=== PATIENT | female | born 1990 | race Caucasian/White ===

== ENCOUNTER 2016-11-11 23:42 | Observation (INO) | payer MEDICAID, OTHER ==
[2016-11-12] MEDS ORDERED: ACETAMINOPHEN 325 MG TAB PO ONE (00:30)
[2016-11-12 02:19] LABS: % IMMATURE GRANULYOCYTES 0.6 % (0.0-1.1); ABSOLUTE IMMATURE GRANULOCYTES 0.06 10^3/uL (0.00-0.10); ADD DIFF? NO; ADD MORPH? NO; ADD SCAN? NO; ATYPICAL LYMPHOCYTE FLAG 0 (0-99); FRAGMENT RBC FLAG 0 (0-99); HEMATOCRIT 31.6 % (38.0-47.0); HEMOGLOBIN 10.9 g/dL (12.6-16.3); LEFT SHIFT FLG 0 (0-99); LIPEMIA HEMOLYSIS FLAG 90 (0-99); MEAN CELL HEMOGLOBIN 31.6 pg (27.9-34.1); MEAN CELL HEMOGLOBIN CONCENTR. 34.5 g/dL (32.4-36.7); MEAN CELL VOLUME 91.6 fL (81.5-99.8); MEAN PLATELET VOLUME 9.6 fL (8.7-11.7); PLATELET CLUMPS FLAG 10 (0-99); PLATELET COUNT 302 10^3/uL (150-400); RED BLOOD CELL COUNT 3.45 10^6/uL (4.18-5.33); RED CELL DISTRIBUTION WIDTH 12.4 % (11.5-15.2)
[2016-11-12 02:33] LABS: ALANINE AMINOTRANSFERASE 48 IU/L (9-52); ALBUMIN 2.5 g/dL (3.5-5.0); ALKALINE PHOSPHATASE 114 IU/L (38-126); ANION GAP 5 mEq/L (8-16); ASPARTATE AMINOTRANSFERASE 84 IU/L (14-46); BILIRUBIN,TOTAL 0.4 mg/dL (0.1-1.4); CALCIUM 7.9 mg/dL (8.5-10.4); CARBON DIOXIDE 25 mEq/l (22-31); CHLORIDE 106 mEq/L (97-110); CREATININE 0.4 mg/dL (0.6-1.0); GLOMERULAR FILTRATION RATE > 60; GLUCOSE 109 mg/dL (70-100); POTASSIUM 3.9 mEq/L (3.5-5.2); SODIUM 136 mEq/L (134-144); TOTAL PROTEIN 5.2 g/dL (6.3-8.2)
[2016-11-12 03:22] LABS: HEPATITIS B SURFACE ANTIBODY NEGATIVE (NEGATIVE)
[2016-11-12 03:44] LABS: COLOR YELLOW; LEUKOCYTE ESTERASE,URINE 2+ (NEGATIVE); NITRITE,URINE POSITIVE (NEGATIVE)
[2016-11-12 03:45] LABS: BACTERIA 4+ /hpf (NONE SEEN); WBC,URINE 50-182 /hpf (0-3)
[2016-11-12 04:00] LABS: PHENCYCLIDINE URINE BCH < 6 ng/ml (NEGATIVE); PHENCYCLIDINE URINE BCH NEGATIVE (NEGATIVE); TETRAHYDROCANNABINOL URINE < 5 ng/mL (NEGATIVE); TETRAHYDROCANNABINOL URINE NEGATIVE (NEGATIVE)
[2016-11-12] MEDS ORDERED: NITROFURANTOIN MACROBID 100 MG CAP PO ONE (04:30)
--- NOTE | 2016-11-12 11:17 | US ---
Obstetrical Sonogram Clinical Indications: Pelvic pain of a 26-year-old female; unknown dates. There has been no care. Findings: A single living vertex fetus with a regular heart rate of 147 beats per minute. The amniot ic fluid is normal with a maximum vertical pocket estimated at 5.4 cm. The cervix is closed measuring 6.4 cm in length. The placenta is anterior. No previa is seen. The umbilical cord inserts centrally onto the placenta. A 3 vessel cord is documented. biometry reveals: Biparietal diameter = 67 mm = 27 weeks 0 days Head circumference = 243 mm = 26 weeks 3 days Abdominal circumference = 236 mm = 28 weeks 0 days Femur length = 51 mm = 27 weeks 3 days Gestational age by today's biometry is 27 weeks 2 days with an estimated delivery date of February 09, 2017. The estimated weight is 1091 grams +/- 159 grams. anatomic survey: The supratentorial brain, posterior fossa, four-chamber heart, ventricular o utflow tracts and interventricular septum, left-sided stomach, kidneys, three-vessel cord, cord inser tion, and urinary bladder are unremarkable. The spine is suboptimally visualized secondary to p osition. Impression: 1. Single live intrauterine gestation with estimated age by ultrasound of 27 weeks 2 days with an est imated delivery date of February 09, 2017. 2. No abnormality is identified. The spine is suboptimally demonstrated. The study was performed as an emergency on-call case and discussed by telephone with the patient's nu rse in labor and delivery at 0200 hours. The final interpretation is concordant with the original communication.
== END 2016-11-12 04:40 | disposition home or self-care (01) ==
LOC: FLD 23:42
PROVIDERS: ADMIT Midwife; ATTEND Midwife
DX: O09.32 Supervision of pregnancy with insufficient antenatal care, second trimester (principal); Z3A.27 27 weeks gestation of pregnancy
CPT/HCPCS: 76805; G0378; 80307; G0472; G0480

== ENCOUNTER 2016-11-22 03:58 | Observation (INO) | payer MEDICAID, OTHER ==
--- NOTE | 2016-11-22 05:12 | OBPROG ---
[id number] from [facility] with care History of section History of Cholecystectomy Plan: IVF CBC and Chem panel normal RUQ ultrasound Normal OB ultrasound unable to evaluate appendix No further vomiting Sent to ER for further work up of Appendicitis. 11/22/16 05:09 11/22/16 05:19 11/22/16 07:22 11/22/16 07:23 Subjective: Patient is a 26 year old at 28 weeks gestation who presents with nausea and vomiting. States last time she ate was at 8pm. Pain started this morning around 0300 and emesis started at 0400. +FM + leaking fluid no bleeding no contractions. - SVE Dilation (cm): 0 (Cervix soft external os ft) Effacement (%): 0 Station: -3 FHR (bpm): 140 FHR Pattern Variability: Moderate FHR Category: 1 Membranes: Intact - Physical Exam EENT: PERRL/EOMI, normal ENT inspection, TMs normal, pharynx normal Respiratory: chest non-tender, lungs clear, normal breath sounds Cardiac/Chest: normal peripheral pulses, regular rate, rhythm Abdomen: normal bowel sounds, other (mild RUQ tenderness) Extremities: normal range of motion, non-tender, normal inspection, normal capillary refill Peripheral Pulses: 2+: carotid (R), carotid (L), femoral (R), femoral (L), dorsalis-pedis (R), dorsalis-pedis (L) Skin: normal color, warm/dry Neuro/Psych: no motor/sensory deficits, alert, normal mood/affect, oriented x 3 ICD10 Worksheet Patient Problems: Problems Problem Status Diagnosed Abdominal pain Acute Acute - ICD10 Problem Qualifiers (1) Qualifiers: Weeks of gestation: 29 weeks Qualified Description: 29 weeks gestation of Qualifier Code(s): (Z3A.29) 29 weeks gestation of (2) Abdominal pain Qualifiers: Abdominal location: right upper quadrant Qualified Description: Right upper quadrant abdominal pain Qualifier Code(s): (R10.11) Right upper quadrant pain
[2016-11-22 05:36] LABS: % IMMATURE GRANULYOCYTES 1.9 % (0.0-1.1); ADD DIFF? NO; ADD MORPH? NO; ADD SCAN? NO; ATYPICAL LYMPHOCYTE FLAG 10 (0-99); FRAGMENT RBC FLAG 0 (0-99); HEMATOCRIT 33.5 % (38.0-47.0); HEMOGLOBIN 11.8 g/dL (12.6-16.3); LEFT SHIFT FLG 10 (0-99); LIPEMIA HEMOLYSIS FLAG 90 (0-99); MEAN CELL HEMOGLOBIN 31.6 pg (27.9-34.1); MEAN CELL HEMOGLOBIN CONCENTR. 35.2 g/dL (32.4-36.7); MEAN CELL VOLUME 89.8 fL (81.5-99.8); MEAN PLATELET VOLUME 10.1 fL (8.7-11.7); PLATELET CLUMPS FLAG 0 (0-99); PLATELET COUNT 236 10^3/uL (150-400); RED BLOOD CELL COUNT 3.73 10^6/uL (4.18-5.33)
[2016-11-22 05:49] LABS: ALANINE AMINOTRANSFERASE 35 IU/L (9-52); ALBUMIN 2.8 g/dL (3.5-5.0); ALKALINE PHOSPHATASE 122 IU/L (38-126); ANION GAP 7 mEq/L (8-16); ASPARTATE AMINOTRANSFERASE 16 IU/L (14-46); BILIRUBIN,TOTAL 0.3 mg/dL (0.1-1.4); CALCIUM 8.5 mg/dL (8.5-10.4); CARBON DIOXIDE 23 mEq/l (22-31); CHLORIDE 108 mEq/L (97-110); CREATININE 0.4 mg/dL (0.6-1.0); GLOMERULAR FILTRATION RATE > 60; GLUCOSE 83 mg/dL (70-100); SODIUM 138 mEq/L (134-144); TOTAL PROTEIN 5.7 g/dL (6.3-8.2)
[2016-11-22 07:07] LABS: COLOR YELLOW; LEUKOCYTE ESTERASE,URINE 2+ (NEGATIVE); NITRITE,URINE NEGATIVE (NEGATIVE)
[2016-11-22 07:19] LABS: BACTERIA 1+ /hpf (NONE SEEN); MUCUS 1+ /lpf (NONE-1+); WBC,URINE 50-182 /hpf (0-3)
[2016-11-22 07:31] LABS: PHENCYCLIDINE URINE BCH < 6 ng/ml (NEGATIVE); TETRAHYDROCANNABINOL URINE < 5 ng/mL (NEGATIVE)
--- NOTE | 2016-11-22 09:41 | US ---
Limited Abdominal (Appendiceal) Ultrasound November 22, 2016 at 5:29 a.m. Indication: Right lower quadrant pain. 29 weeks . Evaluate for appendicitis. Technique: Right lower quadrant was evaluated with a high-resolution linear transducer utilizing grad ed compression. Findings: The appendix could not be identified. No free fluid. The right kidney is normal. No hydrone phrosis. The right ovary is normal size with normal venous and arterial blood flow. The right ovary m easures 2.1 x 1.9 x 1.3 cm. Impression: 1. Appendix not visualized. No free fluid. 2. No right-sided hydronephrosis. 3. Normal right ovary. The study was performed as an emergency on-call case and discussed by telephone with mannie Marin's Labor and Delivery nurse at 6:30 a.m. The final interpretation is concordant with the original communication.
[2016-11-22 09:55] LABS: PHENCYCLIDINE URINE BCH NEGATIVE (NEGATIVE); TETRAHYDROCANNABINOL URINE NEGATIVE (NEGATIVE)
--- NOTE | 2016-11-22 09:57 | US ---
Complete Obstetric Ultrasound November 22, 2016 at 5:42 a.m. Indication: 28 week 5 day woman with right-sided flank pain. Comparison: Obstetrical ultrasound dated November 12, 2016. Findings number: 1 presentation: Vertex. Placental location: Anterior. No retroplacental fluid collection. Cervix: 3.4 cm (transvaginally imaged). Maximum vertical pocket: 5.7 cm heart rate: 142 bpm Ovaries: Normal size right ovary with appropriate blood flow. Left ovary not visualized. biometry: Limited parameters obtained. Biparietal diameter: Not visible. Head circumference: Not visible. Abdominal circumference: 249 mm, 29 weeks 1 day. Femur length: 54 mm, 28 weeks 6 days. Humerus length: Not obtained. Transcerebellar diameter: Not visible. Average ultrasound age: 29 weeks 0 days. EDC based on today's average ultrasound age: February 07, 2017. anatomy survey: Previously assessed. The spine, brain, face, heart, and extremities are subopti braden assessed due to late second trimester imaging and positioning. The visualized stomach, bladder, kidneys, and three-vessel cord are within normal limit. Impression: 1. Living tapia in vertex presentation. Size concordant with dates. The estimated ge stational age is limited. biometry is 29 weeks 0 days, yielding an EDC of February 07, 2017. The e stimated gestational age by previous dating is 28 weeks 5 days. 2. No evidence of abruption or explanation for pain. 3. Normal amniotic fluid volume. No previa. 4. Normal right ovary. 5. Limited anatomic survey due to late second trimester imaging. The study was performed as an emergency on-call case and discussed by telephone with mannie Marin roya's Labor and Delivery nurse at 6:30 a.m. The final interpretation is concordant with the origina l communication.
== END 2016-11-22 07:00 | disposition still patient (30) ==
LOC: FLD 03:58
PROVIDERS: ADMIT Obstetrics & Gynecology; ATTEND Obstetrics & Gynecology
DX: O21.2 Late vomiting of pregnancy (principal); O26.893 Other specified pregnancy related conditions, third trimester; R10.11 Right upper quadrant pain; Z3A.28 28 weeks gestation of pregnancy
CPT/HCPCS: 76705; 76815; G0378; 80307; G0480

== ENCOUNTER 2016-11-22 07:00 | Emergency (ER) | payer OTHER, MEDICAID ==
[2016-11-22 07:06] VITALS: RESP 16; TEMP 99.1
[2016-11-22] MEDS ORDERED: CEPHALEXIN 500 MG CAP PO ONE ×3 (07:12→09:19)
--- NOTE | 2016-11-22 07:25 | EDPHY ---
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; gallbladder removed age 20; asthma; cracked ribs, collarbone broke, jaw dilocated, elbow shattered, concions x5; depression/anxiety->zoloft and trazadon; - Social History Smoking Status: Current every day smoker Constitutional: Initial Vital Signs Temperature (C) 37.3 C 11/22/16 07:04 Heart Rate 86 11/22/16 07:04 Respiratory Rate 16 11/22/16 07:04 Blood Pressure 104/61 11/22/16 07:04 O2 Sat (%) 98 11/22/16 07:04 O2 Delivery Mode Room Air Allergies/Adverse Reactions: No Known Allergies Allergy (Verified 11/12/16 00:29) Home Medications: Medication Instructions Recorded 11/22/16 Medical Decision Making ED Course/Re-evaluation: CHIEF COMPLAINT: RLQ pain HISTORY OF PRESENT ILLNESS: The patient is a 26 y/o female who is 28 weeks and complaining of mild RLQ pain onset around 03:00 this morning, 4 hours ago. She was evaluated by JEREMY Ibarra, this morning and had a normal obstetrics ultrasound, but they were unable to visualize the appendix. She had one episode of associated vomiting. She denies urinary symptoms or fever. REVIEW OF SYSTEMS: A 10 point review of systems was performed and is negative with the exception of the elements mentioned in the history of present illness. PHYSICAL EXAM: General Appearance: Alert, well hydrated, appropriate, and non-toxic appearing. Head: Atraumatic without scalp tenderness or obvious injury Eyes: Pupils equal, round, reactive to light and accommodation, EOMI, no trauma , no injection. Ears: Clear bilaterally, no perforation, normal landmarks Nose: Atraumatic, no rhinorrhea, clear. Throat: There is no erythema or exudates, no lesions, normal tonsils, mucus membranes moist. Neck: Supple, 2+ carotid upstroke, non-tender, no lymphadenopathy. Respiratory: No retractions, no distress, no wheezes, and no accessory muscle use. Lungs are clear to auscultation bilaterally. Cardiovascular: Regular rate and rhythm, no murmurs, rubs, or gallops. Bilateral carotid, radial, dorsalis pedis, and posterior tibial pulses intact. Good capillary refill all extremities. Gastrointestinal: Abdomen is gravid, RLQ tenderness, non-distended, no masses, no rebound, no guarding, no peritoneal signs. Musculoskeletal: Normal active ROM of all extremities, atraumatic. Neurological: Alert, appropriate, and interactive. The patient has normal DTRs and non-focal cranial nerves, motor, sensory, and cerebellar exam. Skin: No rashes, good turgor, no nodules on palpation. PAST MEDICAL HISTORY: Asthma, anxiety, depression, PAST SURGICAL HISTORY: Cholecystectomy SOCIAL HISTORY: In [facility] custody. Meth and heroin use during this . DIAGNOSTICS/PROCEDURES/CRITICAL CARE TIME: Study: MRI of the: Abdomen Indication: Abdominal pain in female Results: MRI scan of the abdomen was obtained. The results of the study are . The study was read by the radiologist, . I viewed the images myself on the PACS system. DIFFERENTIAL DIAGNOSIS: The differential diagnosis for the patient's abdominal pain included but was not limited to ovarian cyst, pelvic inflammatory disease, ovarian torsion, urinary tract infection, complication, and appendicitis. MEDICAL DECISION MAKING: This is a 26 y/o female who is 28 weeks and presents to the ED from the [facility] with 4 hours of RLQ abdominal pain. She is tender to palpation in her RLQ and is afebrile. She is and endorses heroin and methamphetamine use during this . An obstetrics US 2 hours ago was normal, but appendix was not visualized. Her UA indicates a UTI that we will treat with Keflex. The CBC shows WBC around 10. We are not able to CT the patient due to risk of radiation to fetus, so we will perform an abdominal MRI. - Data Points Medications Given: Discontinued Medications Cephalexin HCl (Keflex) 500 mg PO EDNOW ONE PRN Reason: Protocol Stop: 11/22/16 07:13 Last Admin: 11/22/16 07:14 Dose: Not Given
--- NOTE | 2016-11-22 10:43 | MR ---
MRI Abdomen Without Contrast History: Right lower quadrant pain. 30 weeks . Technique: MRI is performed of the abdomen using a 1.5 Lois MRI system. Sagittal, coronal, and axial imaging was obtained with standard imaging sequences. Findings: Intrauterine is visualized. is compressing the cecum and ascending colo n on the right. There is, however, visualization of a normal-sized appendix. No evidence of inflammat ory change around the cecum. Impression: No evidence for appendicitis. Results discussed with Dr. Charli Yu.
--- NOTE | 2016-11-22 10:48 | EDPHY ---
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; gallbladder removed age 20; asthma; cracked ribs, collarbone broke, jaw dilocated, elbow shattered, concions x5; depression/anxiety->zoloft and trazadon; - Social History Smoking Status: Current every day smoker Constitutional: Initial Vital Signs Temperature (C) 37.3 C 11/22/16 07:04 Heart Rate 86 11/22/16 07:04 Respiratory Rate 16 11/22/16 07:04 Blood Pressure 104/61 11/22/16 07:04 O2 Sat (%) 98 11/22/16 07:04 O2 Delivery Mode Room Air Allergies/Adverse Reactions: No Known Allergies Allergy (Verified 11/12/16 00:29) Home Medications: Medication Instructions Recorded Cephalexin [Keflex (RX)] 500 mg PO TID #30 cap 11/22/16 11/22/16 Medical Decision Making ED Course/Re-evaluation: CHIEF COMPLAINT: RLQ pain HISTORY OF PRESENT ILLNESS: This is a 26 y/o female who is 28 weeks and arrives in the custody of [facility] complaining of RLQ pain onset 03:00 this morning, about 4 hours ago. She was evaluated by OBGYN at 05:00 and her obstetrics ultrasound was normal, however, they were unable to visualize the appendix. She's had at least one episode of associated vomiting. She denies fever or urinary symptoms. She has been using methamphetamine and heroin throughout this . She has a history of a cholecystectomy. REVIEW OF SYSTEMS: A 10 point review of systems was performed and is negative with the exception of the elements mentioned in the history of present illness. PHYSICAL EXAM: General Appearance: Alert, well hydrated, appropriate, and non-toxic appearing. Head: Atraumatic without scalp tenderness or obvious injury Eyes: Pupils equal, round, reactive to light and accommodation, EOMI, no trauma , no injection. Ears: Clear bilaterally, no perforation, normal landmarks Nose: Atraumatic, no rhinorrhea, clear. Throat: There is no erythema or exudates, no lesions, normal tonsils, mucus membranes moist. Neck: Supple, 2+ carotid upstroke, non-tender, no lymphadenopathy. Respiratory: No retractions, no distress, no wheezes, and no accessory muscle use. Lungs are clear to auscultation bilaterally. Cardiovascular: Regular rate and rhythm, no murmurs, rubs, or gallops. Bilateral carotid, radial, dorsalis pedis, and posterior tibial pulses intact. Good capillary refill all extremities. Gastrointestinal: Abdomen is soft, gravid uterus, mild RLQ tenderness, non- distended, no masses, no rebound, no guarding, no peritoneal signs. Musculoskeletal: Normal active ROM of all extremities, atraumatic. Neurological: Alert, appropriate, and interactive. The patient has normal DTRs and non-focal cranial nerves, motor, sensory, and cerebellar exam. Skin: No rashes, good turgor, no nodules on palpation. PAST MEDICAL HISTORY: Asthma, depression, substance abuse PAST SURGICAL HISTORY: Cholecystectomy SOCIAL HISTORY: In [facility] custody. Lives at senior care. Prior medical records reviewed including US and OBGYN report from this morning. DIAGNOSTICS/PROCEDURES/CRITICAL CARE TIME: Study: MRI of the: Abdomen Indication: Abdominal pain in female Results: MRI scan of the abdomen was obtained. The results of the study are no evidence for appendicitis. The study was read by the radiologist, Dr. Cam. I viewed the images myself on the PACS system. DIFFERENTIAL DIAGNOSIS: The differential diagnosis for the patient's abdominal pain included but was not limited to ovarian cyst, pelvic inflammatory disease, ovarian torsion, urinary tract infection, complication, cholecystitis , and appendicitis. MEDICAL DECISION MAKING: This is a 26 y/o female who is 28-week and complaining of 4 hours of RLQ abdominal pain and one episode of vomiting. She was referred to the ED by OBGYN for appendicitis rule out. She has mild RLQ tenderness on exam, otherwise unremarkable. She denies urinary symptoms, however UA indicates a UTI. She will receive Keflex for this. Plan for MRI abdomen to rule out acute abdomen, as we cannot perform a CT due to . MRI is negative. Patient will be discharged home with UTI instructions and script for Keflex. Follow up instructions and return precautions given. She is comfortable with this plan. - Data Points Microbiology Results: MICROBIOLOGY 11/22/16 06:50 Urine,Clean Catch Urine Culture - Preliminary Medications Given: Discontinued Medications Cephalexin HCl (Keflex) 500 mg PO EDNOW ONE PRN Reason: Protocol Stop: 11/22/16 07:13 Last Admin: 11/22/16 07:14 Dose: Not Given Cephalexin HCl (Keflex) 500 mg PO EDNOW ONE PRN Reason: Protocol Stop: 11/22/16 09:20 Last Admin: 11/22/16 09:27 Dose: 500 mg Departure - Departure Disposition: Home, Routine, Self-Care Clinical Impression: Urinary tract infection Qualifiers: Qualifier Code: (N39.0) Urinary tract infection, site not specified Instructions: Urinary Tract Infection in Women (ED) Additional Instructions: 1. Take Keflex as prescribed. Complete the entire prescription even if you feel better. 2. Use ibuprofen or Tylenol as directed on the packaging if needed for pain. 3. Follow up with your primary care provider for symptoms not improved over the next 3-4 days. Referrals: NONE *PRIMARY CARE P,. [Primary Care Provider] - As per Instructions [facility] [Outside] - As per Instructions Prescriptions: Cephalexin [Keflex (RX)] 500 mg PO TID #30 cap Report Scribed for: Charli Yu Report Scribed by: Aysha Lott Date of Report: 11/22/16 Time of Report: 10:47
[2016-11-22 11:00] VITALS: BP 99/60; PULSE 87; O2SAT 95
== END 2016-11-22 11:17 | disposition home or self-care (01) ==
DX: O23.42 Unspecified infection of urinary tract in pregnancy, second trimester (principal); J45.909 Unspecified asthma, uncomplicated; B96.89 Other specified bacterial agents as the cause of diseases classified elsewhere; F17.200 Nicotine dependence, unspecified, uncomplicated; Z3A.28 28 weeks gestation of pregnancy; Z90.49 Acquired absence of other specified parts of digestive tract

== ENCOUNTER 2017-01-30 20:35 | Inpatient (IN) | payer SELFPAY ==
[2017-01-30] MEDS ORDERED: IBUPROFEN 600 MG TAB PO PRN (20:58)
[2017-01-30] MEDS ORDERED: LIDOCAINE 1% 30 ML SDV SC PRN (20:58)
[2017-01-30] MEDS ORDERED: OLIVE OIL 118 ML BTL MISC PRN (20:58)
[2017-01-30] MEDS ORDERED: EPSOM SALT 454 GM TP PRN (20:58)
[2017-01-30] MEDS ORDERED: TERBUTALINE SULFATE 1 MG/ML VIAL IV PRN (20:58)
[2017-01-30] MEDS ORDERED: LR 1,000 ML IV PRN (20:58)
[2017-01-30] MEDS ORDERED: OXYTOCIN/RINGERS LACTATE 1,000 ML IV PRN (20:58)
[2017-01-30] MEDS ORDERED: ceFAZolin 2 GM/DEXTROSE 100 ML IV ONE (21:00)
[2017-01-30 21:13] LABS: % IMMATURE GRANULYOCYTES 0.4 % (0.0-1.1); ABSOLUTE IMMATURE GRANULOCYTES 0.03 10^3/uL (0.00-0.10); ADD DIFF? NO; ADD MORPH? NO; ADD SCAN? NO; ATYPICAL LYMPHOCYTE FLAG 20 (0-99); FRAGMENT RBC FLAG 0 (0-99); HEMATOCRIT 35.2 % (38.0-47.0); HEMOGLOBIN 12.2 g/dL (12.6-16.3); LEFT SHIFT FLG 0 (0-99); LIPEMIA HEMOLYSIS FLAG 90 (0-99); MEAN CELL HEMOGLOBIN 30.3 pg (27.9-34.1); MEAN CELL HEMOGLOBIN CONCENTR. 34.7 g/dL (32.4-36.7); MEAN CELL VOLUME 87.6 fL (81.5-99.8); MEAN PLATELET VOLUME 10.6 fL (8.7-11.7); PLATELET CLUMPS FLAG 10 (0-99); PLATELET COUNT 331 10^3/uL (150-400); RED BLOOD CELL COUNT 4.02 10^6/uL (4.18-5.33)
[2017-01-30] MEDS ORDERED: LIDOCAINE 1% 30 ML SDV ONE (21:13)
[2017-01-30] MEDS ORDERED: OLIVE OIL 118 ML BTL ONE (21:13)
[2017-01-30] MEDS ORDERED: AMMONIA AROMATIC 1 EACH AMP IH ONE (21:13)
[2017-01-30] MEDS ORDERED: MISOPROSTOL 200 MCG TAB ONE (21:14)
[2017-01-30] MEDS ORDERED: TERBUTALINE SULFATE 1 MG/ML VIAL ONE (21:14)
[2017-01-30] MEDS ORDERED: OXYTOCIN 10 UNIT/ML VIAL ONE (21:14)
[2017-01-30 22:32] LABS: ALANINE AMINOTRANSFERASE 24 IU/L (9-52); ASPARTATE AMINOTRANSFERASE 16 IU/L (14-46); BILIRUBIN,TOTAL 0.3 mg/dL (0.1-1.4); BILIRUBIN-CONJUGATED 0.3 mg/dL (0.0-0.5); CREATININE 0.5 mg/dL (0.6-1.0); GLOMERULAR FILTRATION RATE > 60; LACTATE DEHYDROGENASE 300 IU/L (313-618); URIC ACID 4.2 mg/dL (2.5-6.8)
--- NOTE | 2017-01-30 22:53 | PDGENHP ---
History and Physical - Chief Complaint leaking fluid - History of Present Illness Patient is a 26 yo with h/o C/S in 2014 for distress at 38w4d by 27w2d US in the emergency room here with PROM. She has had no care this . She states she found out she was in October when she came to the ED and had an ultrasound. She states she was trying to get her medicaid organized and then she was planning to return to [place] where her family is, including her daughter who is being taken of by her aunt. She has no contractions. Baby is active. No vaginal bleeding. Large gush of fluid with ongoing leaking about 1 hour prior to her arrival (approximately 20:00). She states her prior C/S was for distress after she did not progress past 9 cm. She states she was told she would need a C/S for any future delivery. Rh+. Rub immune. Additional OB labs including tox screen pending. GBS unknown PMH: She denies PSH: Cholecystectomy, tonsillectomy, delivery Meds: None All: NKDA Social: she states she is a former smoker. She denies current tobacco or alcohol use. She denies any history of drug use or IV drug use, however on her prior emergency room visits she has tested positive for methamphetamines and opiods. Also of note in her ED visit in October when she presented with abdominal pain and was found to be she is [facility] in [facility] at that time. FamHx: non contributory Blood pressure: 149/97 --> 127/85 Pulse: 88 FHR baseline 130, mod shaista, + accel, no decel Aneth: rare contraction Gen: NAD Resp: unlabored CV: RRR Abd: gravid, term, soft, nontender Ext: no edema SVE: 1/long/posterior. + grossly SROM Formal OB ultrasound performed Anterior placenta BAN 7 cm Vertex History Information - Allergies/Home Medication List Allergies/Adverse Reactions: No Known Allergies Allergy (Unverified 01/30/17 20:51) Home Medications: NK [No Known Home Meds] 01/30/17 [Last Taken Unknown] I have personally reviewed and updated: family history, medical history, social history, surgical history - Social History Smoking Status: Former smoker Review of Systems ROS: 10pt was reviewed & negative except for what was stated in HPI & below Lab Data & Imaging Review 01/30/17 21:03 01/30/17 21:57 WBC 7.65 10^3/uL (3.80-9.50) 01/30/17 21:03 RBC 4.02 10^6/uL (4.18-5.33) L 01/30/17 21:03 Hgb 12.2 g/dL (12.6-16.3) L 01/30/17 21:03 Hct 35.2 % (38.0-47.0) L 01/30/17 21:03 MCV 87.6 fL (81.5-99.8) 01/30/17 21:03 MCH 30.3 pg (27.9-34.1) 01/30/17 21:03 MCHC 34.7 g/dL (32.4-36.7) 01/30/17 21:03 RDW 13.0 % (11.5-15.2) 01/30/17 21:03 Plt Count 331 10^3/uL (150-400) 01/30/17 21:03 MPV 10.6 fL (8.7-11.7) 01/30/17 21:03 Neut % (Auto) 69.2 % (39.3-74.2) 01/30/17 21:03 Lymph % (Auto) 21.4 % (15.0-45.0) 01/30/17 21:03 [place] % (Auto) 7.8 % (4.5-13.0) 01/30/17 21:03 Eos % (Auto) 0.8 % (0.6-7.6) 01/30/17 21:03 Baso % (Auto) 0.4 % (0.3-1.7) 01/30/17 21:03 Nucleat RBC Rel Count 0.0 % (0.0-0.2) 01/30/17 21:03 Absolute Neuts (auto) 5.29 10^3/uL (1.70-6.50) 01/30/17 21:03 Absolute Lymphs (auto) 1.64 10^3/uL (1.00-3.00) 01/30/17 21:03 Absolute Monos (auto) 0.60 10^3/uL (0.30-0.80) 01/30/17 21:03 Absolute Eos (auto) 0.06 10^3/uL (0.03-0.40) 01/30/17 21:03 Absolute Basos (auto) 0.03 10^3/uL (0.02-0.10) 01/30/17 21:03 Absolute Nucleated RBC 0.00 10^3/uL (0-0.01) 01/30/17 21:03 Immature Gran % 0.4 % (0.0-1.1) 01/30/17 21:03 Immature Gran # 0.03 10^3/uL (0.00-0.10) 01/30/17 21:03 BUN 15 mg/dL (7-23) 01/30/17 21:57 Creatinine 0.5 mg/dL (0.6-1.0) L 01/30/17 21:57 Estimated GFR > 60 01/30/17 21:57 Uric Acid 4.2 mg/dL (2.5-6.8) 01/30/17 21:57 Total Bilirubin 0.3 mg/dL (0.1-1.4) 01/30/17 21:57 Conjugated Bilirubin 0.3 mg/dL (0.0-0.5) 01/30/17 21:57 Unconjugated Bilirubin 0.0 mg/dL (0.0-1.1) 01/30/17 21:57 AST 16 IU/L (14-46) 01/30/17 21:57 ALT 24 IU/L (9-52) 01/30/17 21:57 Lactate Dehydrogenase 300 IU/L (313-618) L 01/30/17 21:57 Patient ABO/Rh O POSITIVE 01/30/17 21:03 Antibody Screen NEGATIVE 01/30/17 21:03 Assessment & Plan Assessment: 38w4d by 27 week US: unknown LMP. PROM, not in labor Prior C/S, desires repeat. Anterior placenta, no obvious accreta on US but pt has had no care GBS unknown, no evidence of chorio status reassuring No care, prior urine toxicology with opiods and methamphetamines Rh pos Elevated BP on arrival, normalized, PIH labs WNL OB labs pending Plan: Admit to L&D Continuous monitoring Tox screen and OB labs IV Kefzol 2 g given at time of arrival as she is GBS unknown and arrived with ROM. Pt states she was told she would need a C/S in the future and desires a repeat C /S. Will plan to proceed with delivery via repeat C/S as she is term and ruptured. Discussed risks including pain, infection, bleeding, transfusion, injury to other organs, implications to future pregnancies. She agrees to proceed. Pt just ate large meal: discussed with Dr. Escobar of anesthesia. As pt is currently stable, not in labor, with reassuring status recommend to wait at least 8 hours NPO as long as she remains stable. As in 8 hours it will be 0400, we have agreed to schedule her surgery at 0800 as there is a risk of accreta or adhesions and would be safer to proceed when more resources are available in the morning vs in the middle of the night Repeat IV abx prior to C/S NPO Will continue to monitor closely
[2017-01-31 01:28] LABS: PHENCYCLIDINE URINE BCH < 6 ng/ml (NEGATIVE); PHENCYCLIDINE URINE BCH NEGATIVE (NEGATIVE); TETRAHYDROCANNABINOL URINE 9 ng/mL (NEGATIVE); TETRAHYDROCANNABINOL URINE NEGATIVE (NEGATIVE)
[2017-01-31] MEDS ORDERED: LR 500 ML IV ONE (02:41)
[2017-01-31] MEDS ORDERED: ceFAZolin 2 GM/DEXTROSE 100 ML IV ONE (02:41)
--- NOTE | 2017-01-31 02:48 | SOAPPROG ---
SOAP Progress Note Assessment/Plan: Assessment: 38w5d Vertex Active labor ROM Prior C/S Plan: Will proceed with C/S now as pt in labor. She agrees to proceed Of note pt with positive meth in her tox screen Kefzol 2g IV T&S on file 01/31/17 02:46 Subjective: Pt was sleeping comfortable and woke up in discomfort. She was checked by MARIA D Nieves and has progressed from 1/posterior to 3 cm/mid position/thin. She is now feeling contractions every few minutes and is in discomfort Objective: Laboratory Results 01/30/17 21:03 01/30/17 21:57 ICD10 Worksheet Patient Problems: Problems Problem Status Onset Active labor at term Acute History of delivery Acute - ICD10 Problem Qualifiers (1) Active labor at term (2) History of delivery
[2017-01-31] MEDS ORDERED: fentaNYL 100 MCG/2 ML INJ IVP ONE (02:51)
[2017-01-31] MEDS ORDERED: CITRIC ACID/SODIUM CITRATE 30 ML UDCUP PO ONE (02:59)
[2017-01-31] MEDS ORDERED: LR 1,000 ML IV SCH (03:00)
[2017-01-31] MEDS ORDERED: morphINE PF 5 MG/10 ML INJ ONE (03:13)
[2017-01-31] MEDS ORDERED: BUPIVACAINE/DEXTROSE 7.5MG/ML 2 ML SPINAL AMP SP ONE (03:14)
[2017-01-31] MEDS ORDERED: OXYTOCIN 100 UNITS/10 ML VIAL ONE (03:43)
--- NOTE | 2017-01-31 04:45 | OBPROC ---
- Delivery Pre-op Diagnoses: ROM at 38w4d, dated by 27 week US. H/o prior C/S. No care. Meth positive tox screen. Post-op Diagnoses: Same, s/p repeat LTCS Procedure: Repeat Surgeon: Amaya Young Mold Sheet Cleaner: Lisbet Cho Anesthesiologist: Salbador Escobar Anesthesia: Spinal Complications: None Findings: Moderate adhesive disease of subcutaneous tissue and fascia. No intra-abdominal adhesions. Viable male infant in OP presentation. Thin lower uterine segment. Normal bilateral tubes and ovaries. Specimen(s)/Path: Placenta IV Fluid (ml): 2,400 EBL: 600 - [place] Info A Delivery Date: 01/31/17 Delivery Time: 03:50 Sex of : Male Score (1 Min): 8 Score (5 Min): 8
[2017-01-31] MEDS ORDERED: SIMETHICONE 80 MG TAB CHEW PO PRN (04:52)
--- NOTE | 2017-01-31 06:23 | GOP ---
[f rep st] OPERATIVE REPORT DATE OF OPERATION: 01/31/2017 SURGEON: Amaya Young MD DEBT COLLECTOR: JASON العراقي ANESTHESIA: Spinal. ANESTHESIOLOGIST: Salbador Escobar MD PREOPERATIVE DIAGNOSIS: 38 weeks 5 days' gestation, spontaneous rupture of membranes, active labor, history of prior delivery. No care. Methamphetamine toxicology screen positive. POSTOPERATIVE DIAGNOSIS: 38 weeks 5 days' gestation, spontaneous rupture of membranes, active labor, history of prior delivery. No care. Methamphetamine toxicology screen positive. PROCEDURE PERFORMED: Repeat low transverse delivery. FINDINGS: Moderate adhesive disease of the subcutaneous tissues and fascia. No intraabdominal adhesions. Viable male in vertex presentation and found to be in occiput posterior presentation. Apgars of 8 and 8. Weight pending. Normal bilateral tubes and ovaries. SPECIMENS: Placenta. ESTIMATED BLOOD LOSS: 600 mL. INDICATIONS: The patient is a 26-year-old, G2, P1-0-0-1, at 38 weeks 5 days, dated by 27 week ultrasound. She presented at 38 weeks 4 days with spontaneous rupture of membranes and desired a repeat as she had had a prior C- section in 2014 for history of distress. We were initially awaiting for her to be n.p.o. for 8 hours; however, after 7 hours she went into active labor and began to contract painfully and progressed from 1 cm to 3 cm so the decision was made to proceed with section at that time. We discussed the risks and benefits of surgery and she agreed to proceed. DESCRIPTION OF PROCEDURE: The patient was brought to the operating room and a time-out was performed. Spinal anesthetic was placed. She was prepped and draped in a normal sterile fashion in a supine position with a leftward tilt. A Avalos catheter was placed. An incision was made with a scalpel and carried down to the fascia using sharp dissection and electrocautery. The fascia was incised in the midline sharply and extended bilaterally sharply. The rectus muscles were dissected off the overlying fascia superiorly and inferiorly. The peritoneum was entered bluntly and stretched. The bladder blade was placed and a bladder flap was created. Hysterotomy was performed with the knife and then extended bluntly and the was delivered easily. Cord was clamped and cut , and cord gases were collected. The placenta was removed with massage. Moderate atony was noted and IV Pitocin was started. The hysterotomy was closed with 0 Monocryl in a running locked fashion. A second layer was performed and was imbricated. Hemostasis was noted. Irrigation was performed. The uterus was placed in the abdomen. The gutters were swabbed. Hemostasis was noted along the incision and in the subfascial spaces. The rectus muscles were reapproximated with one mattress suture of 2-0 chromic. The fascia was closed with 0 PDS starting from either apex and crossing in the middle using a running stitch. The subcutaneous tissues were copiously irrigated and hemostasis was assured. The subcutaneous tissue was reapproximated with 2-0 Vicryl and the skin was closed with 4-0 Monocryl, and Steri-Strips and a bandage was placed. Minimal blood was expressed from the uterus and tone was noted to be excellent. Counts were correct x2. The patient was brought to the recovery room in good condition. There were no complications. FLUIDS: 2400 mL. /[id number]/MODL MTDD
[2017-01-31] MEDS: KETOROLAC 30 MG/1 ML SDV IVP SCH ×3 (08:59→22:34)
[2017-01-31] MEDS: HYDROCODONE/APAP 5/325 TAB PO PRN (19:44)
[2017-01-31] MEDS: DOCUSATE SODIUM 100 MG CAP PO PRN (19:45)
[2017-01-31 20:15] VITALS: RESP 16
[2017-02-01] MEDS: IBUPROFEN 600 MG TAB PO PRN ×2 (05:32→10:17)
[2017-02-01] MEDS: KETOROLAC 30 MG/1 ML SDV IVP SCH (06:04)
[2017-02-01 07:52] VITALS: BP 85/52; PULSE 76; TEMP 98.4; O2SAT 91
--- NOTE | 2017-02-01 08:39 | SOAPPROG ---
SOAP Progress Note Assessment/Plan: Assessment: 26 y.o. s/p repeat C/S POD #1. Recovering well with good pain control. Bottle feeding . SW/ CPS managed security sales consultant completed due to positive toxicology screen for +amp. Plan: Routine / post-op orders. SW/ CPS involvement. 02/01/17 08:35 Subjective: Reports minimal pain and minimal vaginal bleeding. Incision CDI. Bottlefeeding. Up and ambulating out of bed without vertigo. Voiding without difficulty. Eating and drinking well without nausea or vomiting. SW/CPS involvement due to + tox screen for AMP. Tends to be emotional and upset with speaking with partner. Objective: Vital Signs Temp Pulse Resp BP Pulse Ox 36.9 C 76 16 85/52 L 91 L 02/01/17 07:51 02/01/17 07:51 02/01/17 07:51 02/01/17 07:51 02/01/17 07:51 Laboratory Results 02/01/17 05:40 01/30/17 21:57 01/31/17 02/01/17 02/02/17 05:59 05:59 05:59 Intake Total 3000 Output Total 850 1550 Balance 2150 -1550 - Time Spent With Patient Time Spent With Patient: 20 minutes - Pending Discharge Pending Discharge Within 24 Hours: No Pending Discharge Within 48 Hours: Yes Pending Discharge Date: 02/03/17 Pending Discharge Time: 11:00 Physical Exam - Physical Exam General Appearance: WD/WN, alert, no apparent distress EENT: normal ENT inspection Neck: full range of motion, supple, normal inspection Respiratory: lungs clear, normal breath sounds Cardiac/Chest: normal peripheral pulses, regular rate, rhythm Abdomen: non-tender, soft Pelvic Exam: normal external exam Rectal: deferred Back: Normal inspection Skin: normal color, warm/dry Lymphatic: no adenopathy Extremities: non-tender Neuro/Psych: alert, normal mood/affect, oriented x 3 ICD10 Worksheet Patient Problems: Problems Problem Status Onset Active labor at term Acute History of delivery Acute
[2017-02-01] MEDS ORDERED: IRON POLYSAC/IRON HEME 28 MG TAB PO SCH (09:00)
[2017-02-01] MEDS: DOCUSATE SODIUM 100 MG CAP PO PRN (10:17)
[2017-02-01] MEDS: HYDROCODONE/APAP 5/325 TAB PO PRN (14:16)
--- NOTE | 2017-02-01 17:27 | OBGCSDC ---
General Delivery Information - General Info : 2 Para: 2 Delivery Date: 01/31/17 Delivery Time: 03:50 Delivery Physician/CNM: Amaya Young Admission Date: 01/30/17 Labs: Patient ABO/Rh O POSITIVE 01/30/17 21:03 Hct 30.2 % (38.0-47.0) L 02/01/17 05:40 Hep Bs Antigen NEGATIVE (NEGATIVE) 01/30/17 21:57 - Info A Sex of Infant: Male Score (1 Min): 8 Score (5 Min): 8 - Delivery IUP (Weeks): 38 4/7 Number of Prior Sections: 1 Indications for Prior Section: Other (Specify) Indications for Current Section: Elective/Repeat Procedures: LTCS Intra-op Complications: None EBL: 600 Anesthesia: Spinal Discharge Information - Discharge Information Discharge Medications: Ibuprofen, Vitamins, Vicodin Complications: No care. Left hospital AMA at 36 hours post-op from repeat C/S. Condition: Fair Instruction/Follow Up: Two Weeks Discharge Physician/CNM: Alicia Rosales Discharge Date: 02/01/17 Dictated: No
--- NOTE | 2017-02-01 17:35 | SOAPPROG ---
SOAP Progress Note Assessment/Plan: Assessment: 26 y.o. s/p repeat C/S POD #1. Recovering well with good pain control. Bottle feeding infant. SW/ CPS marine engineering consultant completed due to positive toxicology screen for +amp. Patient requested to be discharged to home today. Dr. Raphael would like patient to wait until tomorrow and patient refuses. Signed and completed AMA paperwork and patient left for home without baby. Plan: Routine / post-op orders. SW/ CPS involvement. 02/01/17 08:35 02/01/17 17:32 Subjective: Patient wanted to go home today. Dr. Raphael wanted patient to wait until tomorrow and patient refuses. Patient signed AMA paperwork and left hospital without baby. Objective: Vital Signs Temp Pulse Resp BP Pulse Ox 36.9 C 76 16 85/52 L 91 L 02/01/17 07:51 02/01/17 07:51 02/01/17 07:51 02/01/17 07:51 02/01/17 07:51 Laboratory Results 02/01/17 05:40 01/30/17 21:57 01/31/17 02/01/17 02/02/17 05:59 05:59 05:59 Intake Total 3000 Output Total 850 1550 Balance 2150 -1550 - Time Spent With Patient Time Spent With Patient: 5 minutes Physical Exam - Physical Exam General Appearance: WD/WN, alert, mild distress EENT: normal ENT inspection Neck: full range of motion Respiratory: lungs clear, normal breath sounds Cardiac/Chest: regular rate, rhythm Abdomen: non-tender, soft Rectal: deferred Back: Normal inspection Skin: normal color, warm/dry Lymphatic: no adenopathy Extremities: normal range of motion, non-tender Neuro/Psych: alert, oriented x 3 (Patient upset and agitated. ) ICD10 Worksheet Patient Problems: Problems Problem Status Onset Active labor at term Acute History of delivery Acute
== END 2017-02-01 17:30 | disposition left against medical advice (07) | DRG 766 ==
LOC: OBSVTOIN 20:35 → MERGE 20:35 → FLD 20:35 → FOB 01-31 06:50
PROVIDERS: ADMIT Obstetrics & Gynecology; ATTEND Obstetrics & Gynecology
PROC: 10D00Z1 Extraction of Products of Conception, Low, Open Approach (ICD-10-PCS; principal; 2017-01-31)
DX: O34.211 Maternal care for low transverse scar from previous cesarean delivery (principal); R78.4 Finding of other drugs of addictive potential in blood; Z3A.38 38 weeks gestation of pregnancy; Z37.0 Single live birth
CPT/HCPCS: 80307; G0480; J0690; J1885; J2274; J2590; J3105